=== PATIENT | male | born 1940 | race Caucasian/White ===

== ENCOUNTER 2019-04-13 13:02 | Inpatient (IN) ==
[2019-04-13] MEDS ORDERED: Albuterol 2.5 MG/3 ML NEBULIZER IH PRN ×2 (15:35→15:45)
[2019-04-13] MEDS ORDERED: Artificial Tears SOLN 15 ML BOTTLE BOTH EYES PRN (15:35)
[2019-04-13] MEDS: Lisinopril 20 MG TABLET PO SCH (20:32)
[2019-04-14] MEDS: Tiotropium 18 MCG inhalation IH SCH (07:32)
[2019-04-14 07:45] LABS: Activated Partial Thrombo Time 28.2 Seconds (26.0-36.0)
[2019-04-14 07:50] LABS: Calcium 9.7 mg/dL (8.6-10.3); Potassium 4.8 mEq/L (3.5-5.1)
[2019-04-14 07:52] LABS: Basophils % 0.5 %; Eosinophils # 0.1 K/mcL (0.0-0.6); Eosinophils % 2.7 %; Hematocrit 24.6 % (37.5-50.1); Hemoglobin 8.3 g/dL (12.9-16.9); Immature Granulocytes % 0.8 % (0-4); Lymphocytes # 1.5 K/mcL (0.6-4.6); Mean Corpuscular HGB Conc 33.7 g/dL (31.6-35.5); Mean Corpuscular Hemoglobin 35.6 pg (28.0-33.3); Mean Corpuscular Volume 105.6 fL (83.0-100.0); Monocytes # 0.4 K/mcL (0.0-1.3); Monocytes % 10.7 %; Neutrophils # 1.7 K/mcL (1.6-8.9); Platelet Count 66 K/mcL (140-400); Red Blood Count 2.33 M/mcL (4.19-5.50); Red Cell Distribution Width 15.9 % (11.5-14.5); Segmented Neutrophils % 45.3 %; White Blood Count 3.8 K/mcL (4.3-11.1)
[2019-04-14] MEDS: NIFEdipine XL (24 HR) 30 MG TAB.ER.24 PO SCH (08:06)
[2019-04-14] MEDS: Aspirin Enteric Coated 81 MG Tablet PO SCH (08:06)
[2019-04-14] MEDS: Cholecalciferol (D-3) 1,000 UNIT (25MCG) TABLET PO SCH (08:06)
[2019-04-14] MEDS: Furosemide 40 MG TABLET PO SCH (08:07)
[2019-04-14] MEDS: Isosorbide MONOnitrate (24 HR) 30 MG TAB.ER.24H PO SCH (08:07)
[2019-04-14] MEDS: Vitamin B Complex/Vit C/Vit E 1 EACH TABLET PO SCH (08:07)
[2019-04-14] MEDS: Lisinopril 20 MG TABLET PO SCH ×2 (08:08→20:48)
[2019-04-14] MEDS: Loratadine 10 MG TABLET PO SCH (08:08)
[2019-04-14] MEDS ORDERED: MOM Conc 10 ML UD.LIQ PO PRN (19:20)
[2019-04-15] MEDS: Tiotropium 18 MCG inhalation IH SCH (07:33)
[2019-04-15] MEDS: Furosemide 40 MG TABLET PO SCH (07:42)
[2019-04-15] MEDS: Isosorbide MONOnitrate (24 HR) 30 MG TAB.ER.24H PO SCH (07:42)
[2019-04-15] MEDS: NIFEdipine XL (24 HR) 30 MG TAB.ER.24 PO SCH (07:43)
[2019-04-15] MEDS: Lisinopril 20 MG TABLET PO SCH ×2 (07:43→20:03)
[2019-04-15] MEDS: Cholecalciferol (D-3) 1,000 UNIT (25MCG) TABLET PO SCH (08:20)
[2019-04-15] MEDS: Aspirin Enteric Coated 81 MG Tablet PO SCH (08:20)
[2019-04-15] MEDS: Loratadine 10 MG TABLET PO SCH (08:20)
[2019-04-15] MEDS: Vitamin B Complex/Vit C/Vit E 1 EACH TABLET PO SCH (08:20)
[2019-04-16] MEDS: NIFEdipine XL (24 HR) 30 MG TAB.ER.24 PO SCH (08:35)
[2019-04-16] MEDS: Furosemide 40 MG TABLET PO SCH (08:36)
[2019-04-16] MEDS: Cholecalciferol (D-3) 1,000 UNIT (25MCG) TABLET PO SCH (08:36)
[2019-04-16] MEDS: Isosorbide MONOnitrate (24 HR) 30 MG TAB.ER.24H PO SCH (08:36)
[2019-04-16] MEDS: Lisinopril 20 MG TABLET PO SCH ×2 (08:36→20:53)
[2019-04-16] MEDS: Vitamin B Complex/Vit C/Vit E 1 EACH TABLET PO SCH (08:36)
[2019-04-16] MEDS: Loratadine 10 MG TABLET PO SCH (08:36)
[2019-04-16] MEDS: Aspirin Enteric Coated 81 MG Tablet PO SCH (08:36)
[2019-04-16] MEDS: Tiotropium 18 MCG inhalation IH SCH (09:06)
[2019-04-17] MEDS: Tiotropium 18 MCG inhalation IH SCH (08:36)
[2019-04-17] MEDS: Lisinopril 20 MG TABLET PO SCH ×2 (10:47→20:01)
[2019-04-17] MEDS: NIFEdipine XL (24 HR) 30 MG TAB.ER.24 PO SCH (10:47)
[2019-04-17] MEDS: Cholecalciferol (D-3) 1,000 UNIT (25MCG) TABLET PO SCH (10:47)
[2019-04-17] MEDS: Isosorbide MONOnitrate (24 HR) 30 MG TAB.ER.24H PO SCH (10:47)
[2019-04-17] MEDS: Vitamin B Complex/Vit C/Vit E 1 EACH TABLET PO SCH (10:48)
[2019-04-17] MEDS: Loratadine 10 MG TABLET PO SCH (10:48)
[2019-04-17] MEDS: Furosemide 40 MG TABLET PO SCH (10:48)
[2019-04-17] MEDS: Aspirin Enteric Coated 81 MG Tablet PO SCH (12:30)
[2019-04-18] MEDS: Loratadine 10 MG TABLET PO SCH (07:53)
[2019-04-18] MEDS: Cholecalciferol (D-3) 1,000 UNIT (25MCG) TABLET PO SCH (07:54)
[2019-04-18] MEDS: Vitamin B Complex/Vit C/Vit E 1 EACH TABLET PO SCH (07:55)
[2019-04-18] MEDS: Aspirin Enteric Coated 81 MG Tablet PO SCH (07:56)
[2019-04-18] MEDS: Furosemide 40 MG TABLET PO SCH (07:58)
[2019-04-18] MEDS: Isosorbide MONOnitrate (24 HR) 30 MG TAB.ER.24H PO SCH (07:58)
[2019-04-18] MEDS: Lisinopril 20 MG TABLET PO SCH ×2 (07:59→20:53)
[2019-04-18] MEDS: NIFEdipine XL (24 HR) 30 MG TAB.ER.24 PO SCH (07:59)
[2019-04-18] MEDS: Tiotropium 18 MCG inhalation IH SCH (09:05)
[2019-04-19] MEDS: Lisinopril 20 MG TABLET PO SCH ×2 (07:47→20:17)
[2019-04-19] MEDS: NIFEdipine XL (24 HR) 30 MG TAB.ER.24 PO SCH (07:47)
[2019-04-19] MEDS: Vitamin B Complex/Vit C/Vit E 1 EACH TABLET PO SCH (07:47)
[2019-04-19] MEDS: Isosorbide MONOnitrate (24 HR) 30 MG TAB.ER.24H PO SCH (07:47)
[2019-04-19] MEDS: Cholecalciferol (D-3) 1,000 UNIT (25MCG) TABLET PO SCH (07:47)
[2019-04-19] MEDS: Loratadine 10 MG TABLET PO SCH (07:48)
[2019-04-19] MEDS: Furosemide 40 MG TABLET PO SCH (07:48)
[2019-04-19] MEDS: Tiotropium 18 MCG inhalation IH SCH (07:59)
[2019-04-19] MEDS: Aspirin Enteric Coated 81 MG Tablet PO SCH (10:51)
[2019-04-19] MEDS: Melatonin 3 MG TABLET PO SCH (20:17)
[2019-04-20 04:59] LABS: Basophils % 0.5 %; Eosinophils # 0.1 K/mcL (0.0-0.6); Eosinophils % 2.8 %; Hematocrit 20.2 % (37.5-50.1); Hemoglobin 6.9 g/dL (12.9-16.9); Immature Granulocytes % 0.8 % (0-4); Lymphocytes # 1.4 K/mcL (0.6-4.6); Lymphocytes % 36.3 %; Mean Corpuscular HGB Conc 34.2 g/dL (31.6-35.5); Mean Corpuscular Hemoglobin 36.1 pg (28.0-33.3); Mean Corpuscular Volume 105.8 fL (83.0-100.0); Mean Platelet Volume 13.3 fL (9.4-12.4); Monocytes # 0.3 K/mcL (0.0-1.3); Monocytes % 8.4 %; Red Blood Count 1.91 M/mcL (4.19-5.50); Red Cell Distribution Width 15.2 % (11.5-14.5); Segmented Neutrophils % 51.2 %; White Blood Count 3.9 K/mcL (4.3-11.1)
[2019-04-20 05:03] LABS: Platelet Count 54 K/mcL (140-400)
[2019-04-20] MEDS: Tiotropium 18 MCG inhalation IH SCH (08:07)
[2019-04-20] MEDS: Loratadine 10 MG TABLET PO SCH (08:20)
[2019-04-20] MEDS: Vitamin B Complex/Vit C/Vit E 1 EACH TABLET PO SCH (08:20)
[2019-04-20] MEDS: Cholecalciferol (D-3) 1,000 UNIT (25MCG) TABLET PO SCH (08:21)
[2019-04-20] MEDS: Isosorbide MONOnitrate (24 HR) 30 MG TAB.ER.24H PO SCH (09:48)
[2019-04-20] MEDS: Furosemide 40 MG TABLET PO SCH (09:48)
[2019-04-20] MEDS: NIFEdipine XL (24 HR) 30 MG TAB.ER.24 PO SCH (09:49)
[2019-04-20] MEDS: Lisinopril 20 MG TABLET PO SCH ×2 (09:49→21:11)
[2019-04-20] MEDS ORDERED: 0.9 % Sodium Chloride 250 ML ONE ×2 (17:51→22:35)
[2019-04-20] MEDS: Melatonin 3 MG TABLET PO SCH (21:11)
[2019-04-21] MEDS: NIFEdipine XL (24 HR) 30 MG TAB.ER.24 PO SCH (07:48)
[2019-04-21] MEDS: Isosorbide MONOnitrate (24 HR) 30 MG TAB.ER.24H PO SCH (07:48)
[2019-04-21] MEDS: Cholecalciferol (D-3) 1,000 UNIT (25MCG) TABLET PO SCH (07:48)
[2019-04-21] MEDS: Furosemide 40 MG TABLET PO SCH (07:49)
[2019-04-21] MEDS: Vitamin B Complex/Vit C/Vit E 1 EACH TABLET PO SCH (07:49)
[2019-04-21] MEDS: Loratadine 10 MG TABLET PO SCH (07:49)
[2019-04-21] MEDS: Lisinopril 20 MG TABLET PO SCH ×2 (07:49→21:11)
[2019-04-21] MEDS: Tiotropium 18 MCG inhalation IH SCH (09:16)
[2019-04-21 11:53] LABS: Basophils % 0.5 %; Eosinophils # 0.2 K/mcL (0.0-0.6); Eosinophils % 3.6 %; Hematocrit 26.1 % (37.5-50.1); Hemoglobin 9.1 g/dL (12.9-16.9); Immature Granulocytes % 0.5 % (0-4); Lymphocytes # 1.3 K/mcL (0.6-4.6); Lymphocytes % 30.1 %; Mean Corpuscular HGB Conc 34.9 g/dL (31.6-35.5); Mean Corpuscular Hemoglobin 35.3 pg (28.0-33.3); Mean Corpuscular Volume 101.2 fL (83.0-100.0); Monocytes # 0.4 K/mcL (0.0-1.3); Monocytes % 9.9 %; Neutrophils # 2.3 K/mcL (1.6-8.9); Red Blood Count 2.58 M/mcL (4.19-5.50); Red Cell Distribution Width 16.4 % (11.5-14.5); Segmented Neutrophils % 55.4 %; White Blood Count 4.2 K/mcL (4.3-11.1)
[2019-04-21 11:54] LABS: Platelet Count 62 K/mcL (140-400)
[2019-04-21] MEDS: Melatonin 3 MG TABLET PO SCH (21:11)
[2019-04-22] MEDS: Isosorbide MONOnitrate (24 HR) 30 MG TAB.ER.24H PO SCH (08:07)
[2019-04-22] MEDS: Cholecalciferol (D-3) 1,000 UNIT (25MCG) TABLET PO SCH (08:07)
[2019-04-22] MEDS: NIFEdipine XL (24 HR) 30 MG TAB.ER.24 PO SCH (08:07)
[2019-04-22] MEDS: Vitamin B Complex/Vit C/Vit E 1 EACH TABLET PO SCH (08:07)
[2019-04-22] MEDS: Furosemide 40 MG TABLET PO SCH (08:07)
[2019-04-22] MEDS: Loratadine 10 MG TABLET PO SCH (08:07)
[2019-04-22] MEDS: Lisinopril 20 MG TABLET PO SCH ×2 (08:08→20:44)
[2019-04-22] MEDS: Tiotropium 18 MCG inhalation IH SCH (09:35)
[2019-04-22] MEDS: Melatonin 3 MG TABLET PO SCH (20:44)
[2019-04-23] MEDS ORDERED: Mag Hydrox/Al Hydrox/Simeth 30 ML UDC PO PRN (04:21)
[2019-04-23] MEDS: Tiotropium 18 MCG inhalation IH SCH (08:22)
[2019-04-23] MEDS: Lisinopril 20 MG TABLET PO SCH ×2 (08:41→21:10)
[2019-04-23] MEDS: Furosemide 40 MG TABLET PO SCH (08:41)
[2019-04-23] MEDS: Loratadine 10 MG TABLET PO SCH (08:41)
[2019-04-23] MEDS: NIFEdipine XL (24 HR) 30 MG TAB.ER.24 PO SCH (08:41)
[2019-04-23] MEDS: Cholecalciferol (D-3) 1,000 UNIT (25MCG) TABLET PO SCH (08:41)
[2019-04-23] MEDS: Isosorbide MONOnitrate (24 HR) 30 MG TAB.ER.24H PO SCH (08:42)
[2019-04-23] MEDS: Vitamin B Complex/Vit C/Vit E 1 EACH TABLET PO SCH (08:42)
[2019-04-23] MEDS: Melatonin 3 MG TABLET PO SCH (21:10)
[2019-04-24] MEDS: Tiotropium 18 MCG inhalation IH SCH (08:08)
[2019-04-24] MEDS: Cholecalciferol (D-3) 1,000 UNIT (25MCG) TABLET PO SCH (08:38)
[2019-04-24] MEDS: Lisinopril 20 MG TABLET PO SCH ×2 (08:38→19:46)
[2019-04-24] MEDS: Isosorbide MONOnitrate (24 HR) 30 MG TAB.ER.24H PO SCH (08:38)
[2019-04-24] MEDS: Vitamin B Complex/Vit C/Vit E 1 EACH TABLET PO SCH (08:38)
[2019-04-24] MEDS: Furosemide 40 MG TABLET PO SCH (08:39)
[2019-04-24] MEDS: Loratadine 10 MG TABLET PO SCH (08:39)
[2019-04-24] MEDS: NIFEdipine XL (24 HR) 30 MG TAB.ER.24 PO SCH (08:40)
[2019-04-24] MEDS: Melatonin 3 MG TABLET PO SCH (19:46)
[2019-04-25 07:19] LABS: Basophils % 0.3 %; Eosinophils # 0.2 K/mcL (0.0-0.6); Eosinophils % 3.8 %; Hematocrit 23.1 % (37.5-50.1); Immature Granulocytes % 0.5 % (0-4); Lymphocytes # 1.2 K/mcL (0.6-4.6); Lymphocytes % 29.5 %; Mean Corpuscular HGB Conc 34.6 g/dL (31.6-35.5); Mean Corpuscular Hemoglobin 34.9 pg (28.0-33.3); Mean Corpuscular Volume 100.9 fL (83.0-100.0); Mean Platelet Volume 13.1 fL (9.4-12.4); Monocytes # 0.4 K/mcL (0.0-1.3); Monocytes % 10.2 %; Neutrophils # 2.2 K/mcL (1.6-8.9); Red Blood Count 2.29 M/mcL (4.19-5.50); Red Cell Distribution Width 15.5 % (11.5-14.5); Segmented Neutrophils % 55.7 %; White Blood Count 3.9 K/mcL (4.3-11.1)
[2019-04-25 07:21] LABS: Platelet Count 73 K/mcL (140-400)
[2019-04-25] MEDS: Tiotropium 18 MCG inhalation IH SCH (08:11)
[2019-04-25] MEDS: Vitamin B Complex/Vit C/Vit E 1 EACH TABLET PO SCH (08:45)
[2019-04-25] MEDS: Cholecalciferol (D-3) 1,000 UNIT (25MCG) TABLET PO SCH (08:45)
[2019-04-25] MEDS: Furosemide 40 MG TABLET PO SCH (08:45)
[2019-04-25] MEDS: Lisinopril 20 MG TABLET PO SCH ×2 (08:46→20:11)
[2019-04-25] MEDS: Loratadine 10 MG TABLET PO SCH (08:46)
[2019-04-25] MEDS: NIFEdipine XL (24 HR) 30 MG TAB.ER.24 PO SCH (08:46)
[2019-04-25] MEDS: Isosorbide MONOnitrate (24 HR) 30 MG TAB.ER.24H PO SCH (08:46)
[2019-04-25] MEDS ORDERED: Aspirin Enteric Coated 81 MG Tablet PO SCH (09:00)
[2019-04-25] MEDS: Ondansetron ODT 4 MG TAB.RAPDIS SL PRN ×2 (19:00→23:08)
[2019-04-25] MEDS ORDERED: Nitroglycerin 0.4 MG TAB.SUBL SL PRN (20:00)
[2019-04-25] MEDS ORDERED: GI Cocktail 40 ML EACH PO ONE (20:00)
[2019-04-25] MEDS: Melatonin 3 MG TABLET PO SCH (20:49)
[2019-04-26] MEDS: Morphine Sulfate Oral CONC 10 MG/0.5 ML ORAL.SYG SL PRN ×2 (00:05→04:01)
[2019-04-26] MEDS ORDERED: Morphine Sulfate Oral CONC 10 MG/0.5 ML ORAL.SYG SL ONE (05:56)
[2019-04-26 07:09] LABS: Bilirubin,Urine Negative (Negative); Blood,Urine Negative (Negative); Clarity,Urine Clear (Clear); Color,Urine Yellow (Yellow); Glucose,Urine (UA) 100 mg/dL (Normal); Ketones,Urine Negative (Negative); Leukocyte Esterase,Urine Negative (Negative); Nitrite,Urine Negative (Negative); PH,Urine 8.5 pH Units (5.0-8.0); Protein,Urine >=300 mg/dL (Neg-Trace); Urobilinogen,Urine Normal (Normal)
[2019-04-26 07:35] LABS: Bacteria,Urine Few per hpf (None-Few); Hyaline Casts,Urine Few per lpf (None-Few); Mucus,Urine Few (Few); RBC,Urine 0-3 per hpf (0-3); Squamous Epithelial Cell,Urine Few per lpf (None-Few); WBC,Urine 0-3 per hpf (0-3)
[2019-04-26 07:58] VITALS: BP 182/81
[2019-04-26] MEDS: Isosorbide MONOnitrate (24 HR) 30 MG TAB.ER.24H PO SCH (08:06)
[2019-04-26] MEDS: Vitamin B Complex/Vit C/Vit E 1 EACH TABLET PO SCH (08:06)
[2019-04-26] MEDS: NIFEdipine XL (24 HR) 30 MG TAB.ER.24 PO SCH (08:07)
[2019-04-26] MEDS: Cholecalciferol (D-3) 1,000 UNIT (25MCG) TABLET PO SCH (08:07)
[2019-04-26] MEDS: Loratadine 10 MG TABLET PO SCH (08:07)
[2019-04-26] MEDS: Lisinopril 20 MG TABLET PO SCH (08:07)
[2019-04-26] MEDS: Furosemide 40 MG TABLET PO SCH (08:07)
[2019-04-26 09:05] LABS: Basophils % 0.3 %; Eosinophils # 0.1 K/mcL (0.0-0.6); Eosinophils % 2.2 %; Hematocrit 22.5 % (37.5-50.1); Hemoglobin 7.7 g/dL (12.9-16.9); Immature Granulocytes % 0.3 % (0-4); Mean Corpuscular HGB Conc 34.2 g/dL (31.6-35.5); Mean Corpuscular Hemoglobin 34.8 pg (28.0-33.3); Mean Corpuscular Volume 101.8 fL (83.0-100.0); Mean Platelet Volume 13.2 fL (9.4-12.4); Monocytes # 0.4 K/mcL (0.0-1.3); Monocytes % 10.7 %; Neutrophils # 2.1 K/mcL (1.6-8.9); Red Blood Count 2.21 M/mcL (4.19-5.50); Red Cell Distribution Width 15.6 % (11.5-14.5); Segmented Neutrophils % 58.5 %; White Blood Count 3.6 K/mcL (4.3-11.1)
[2019-04-26 09:08] LABS: Platelet Count 70 K/mcL (140-400)
[2019-04-26] MEDS: Tiotropium 18 MCG inhalation IH SCH (09:13)
[2019-04-26 09:22] LABS: Albumin 3.2 g/dL (3.5-5.7); Albumin/Globulin Ratio 1.3 (1.1-2.2); Bilirubin,Total 0.5 mg/dL (0.3-1.0); Calcium 9.5 mg/dL (8.6-10.3); Globulin 2.5 g/dL (2.4-3.5); Potassium 4.2 mEq/L (3.5-5.1); Total Protein 5.7 g/dL (6.4-8.9)
== END 2019-04-26 11:43 | disposition home or self-care (01) | DRG 945 ==
LOC: INPPIK 14:54
PROVIDERS: ADMIT Internal Medicine; ATTEND Internal Medicine

== ENCOUNTER 2019-04-27 15:39 | Observation (INO) ==
[2019-04-27 16:25] LABS: Basophils % 0.2 %; Eosinophils # 0.1 K/mcL (0.0-0.6); Eosinophils % 1.5 %; Immature Granulocytes % 1.1 % (0-4); Lymphocytes # 0.7 K/mcL (0.6-4.6); Lymphocytes % 16.3 %; Mean Corpuscular HGB Conc 33.3 g/dL (31.6-35.5); Mean Corpuscular Hemoglobin 34.9 pg (28.0-33.3); Mean Corpuscular Volume 104.8 fL (83.0-100.0); Mean Platelet Volume 13.5 fL (9.4-12.4); Monocytes # 0.5 K/mcL (0.0-1.3); Monocytes % 11.7 %; Neutrophils # 3.1 K/mcL (1.6-8.9); Platelet Count 69 K/mcL (140-400); Red Blood Count 2.29 M/mcL (4.19-5.50); Red Cell Distribution Width 15.7 % (11.5-14.5); Segmented Neutrophils % 69.2 %; White Blood Count 4.5 K/mcL (4.3-11.1)
[2019-04-27 16:26] LABS: Prothrombin Time 11.4 Seconds (9.4-12.1)
[2019-04-27 16:29] LABS: Activated Partial Thrombo Time 28.5 Seconds (26.0-36.0)
[2019-04-27 16:33] LABS: Calcium 9.2 mg/dL (8.6-10.3); Potassium 3.5 mEq/L (3.5-5.1)
[2019-04-27 16:39] LABS: Troponin I 0.04 ng/mL (< 0.04)
[2019-04-27] MEDS ORDERED: Albuterol 2.5 MG/3 ML NEBULIZER IH PRN (19:48)
[2019-04-27] MEDS ORDERED: *HR* HYDROcodone/Acet 5/325 mg TABLET PO PRN (19:48)
[2019-04-27] MEDS ORDERED: Artificial Tears SOLN 15 ML BOTTLE BOTH EYES PRN (19:48)
[2019-04-27] MEDS ORDERED: Naloxone 0.4 MG/ML INJ IVP PRN (19:48)
[2019-04-27] MEDS ORDERED: Mag Hydrox/Al Hydrox/Simeth 30 ML UDC PO PRN (19:48)
[2019-04-27] MEDS ORDERED: Acetaminophen 325 MG TABLET PO PRN (19:48)
[2019-04-27] MEDS ORDERED: MOM Conc 10 ML UD.LIQ PO PRN (19:48)
[2019-04-27] MEDS: Lisinopril 20 MG TABLET PO SCH (21:21)
[2019-04-28] MEDS ORDERED: Tiotropium 18 MCG inhalation IH SCH (07:00)
[2019-04-28 08:40] LABS: Eosinophils % 2.4 %; Hematocrit 23.4 % (37.5-50.1); Hemoglobin 7.9 g/dL (12.9-16.9); Immature Granulocytes % 0.6 % (0-4); Lymphocytes % 25.5 %; Mean Corpuscular HGB Conc 33.8 g/dL (31.6-35.5); Mean Corpuscular Hemoglobin 35.1 pg (28.0-33.3); Mean Platelet Volume 12.1 fL (9.4-12.4); Monocytes % 10.5 %; Red Blood Count 2.25 M/mcL (4.19-5.50); Red Cell Distribution Width 15.9 % (11.5-14.5); Segmented Neutrophils % 60.8 %; White Blood Count 4.7 K/mcL (4.3-11.1)
[2019-04-28 08:41] LABS: Basophils % 0.2 %; Eosinophils # 0.1 K/mcL (0.0-0.6); Lymphocytes # 1.2 K/mcL (0.6-4.6); Monocytes # 0.5 K/mcL (0.0-1.3); Neutrophils # 2.8 K/mcL (1.6-8.9)
[2019-04-28 08:44] LABS: Platelet Count 63 K/mcL (140-400)
[2019-04-28 08:53] LABS: Calcium 9.2 mg/dL (8.6-10.3)
[2019-04-28] MEDS ORDERED: Furosemide 40 MG TABLET PO SCH (09:00)
[2019-04-28] MEDS ORDERED: Isosorbide MONOnitrate (24 HR) 60 MG TAB.ER.24H PO SCH (09:00)
[2019-04-28] MEDS ORDERED: NIFEdipine XL (24 HR) 30 MG TAB.ER.24 PO SCH (09:00)
[2019-04-28] MEDS ORDERED: Loratadine 10 MG TABLET PO SCH (09:00)
[2019-04-28] MEDS ORDERED: Aspirin Enteric Coated 81 MG Tablet PO SCH (09:00)
[2019-04-28] MEDS: Lisinopril 20 MG TABLET PO SCH (10:13)
[2019-04-28 10:25] VITALS: BP 132/60
== END 2019-04-28 13:38 | disposition other institution (70) ==
LOC: INPPIK 15:39 → EMEROOPIK 15:39 → INPPIK 19:44
PROVIDERS: ADMIT Internal Medicine; ATTEND Internal Medicine

== ENCOUNTER 2019-04-28 12:22 | Inpatient (IN) ==
[2019-04-28] MEDS ORDERED: Artificial Tears SOLN 15 ML BOTTLE BOTH EYES PRN (13:13)
[2019-04-28] MEDS ORDERED: Albuterol 2.5 MG/3 ML NEBULIZER IH PRN (13:13)
[2019-04-28] MEDS: Lisinopril 20 MG TABLET PO SCH (19:42)
[2019-04-29] MEDS: Tiotropium 18 MCG inhalation IH SCH (08:16)
[2019-04-29] MEDS: Cholecalciferol (D-3) 1,000 UNIT (25MCG) TABLET PO SCH (09:04)
[2019-04-29] MEDS: Furosemide 40 MG TABLET PO SCH (09:05)
[2019-04-29] MEDS: Aspirin Enteric Coated 81 MG Tablet PO SCH (09:05)
[2019-04-29] MEDS: Isosorbide MONOnitrate (24 HR) 60 MG TAB.ER.24H PO SCH (09:05)
[2019-04-29] MEDS: Loratadine 10 MG TABLET PO SCH (09:05)
[2019-04-29] MEDS: NIFEdipine XL (24 HR) 30 MG TAB.ER.24 PO SCH (09:05)
[2019-04-29] MEDS: Lisinopril 20 MG TABLET PO SCH ×2 (09:05→19:38)
[2019-04-29] MEDS: Vitamin B Complex/Vit C/Vit E 1 EACH TABLET PO SCH (09:06)
[2019-04-30] MEDS: Tiotropium 18 MCG inhalation IH SCH (06:43)
[2019-04-30] MEDS: Furosemide 40 MG TABLET PO SCH (09:21)
[2019-04-30] MEDS: Cholecalciferol (D-3) 1,000 UNIT (25MCG) TABLET PO SCH (09:21)
[2019-04-30] MEDS: Lisinopril 20 MG TABLET PO SCH ×2 (09:21→20:17)
[2019-04-30] MEDS: Aspirin Enteric Coated 81 MG Tablet PO SCH (09:21)
[2019-04-30] MEDS: Isosorbide MONOnitrate (24 HR) 60 MG TAB.ER.24H PO SCH (09:21)
[2019-04-30] MEDS: Loratadine 10 MG TABLET PO SCH (09:22)
[2019-04-30] MEDS: NIFEdipine XL (24 HR) 30 MG TAB.ER.24 PO SCH (09:22)
[2019-04-30] MEDS: Vitamin B Complex/Vit C/Vit E 1 EACH TABLET PO SCH (09:22)
[2019-05-01] MEDS: Furosemide 40 MG TABLET PO SCH (08:37)
[2019-05-01] MEDS: NIFEdipine XL (24 HR) 30 MG TAB.ER.24 PO SCH (08:37)
[2019-05-01] MEDS: Cholecalciferol (D-3) 1,000 UNIT (25MCG) TABLET PO SCH (08:37)
[2019-05-01] MEDS: Loratadine 10 MG TABLET PO SCH (08:37)
[2019-05-01] MEDS: Lisinopril 20 MG TABLET PO SCH ×2 (08:37→20:45)
[2019-05-01] MEDS: Isosorbide MONOnitrate (24 HR) 60 MG TAB.ER.24H PO SCH (08:37)
[2019-05-01] MEDS: Aspirin Enteric Coated 81 MG Tablet PO SCH (08:37)
[2019-05-01] MEDS: Vitamin B Complex/Vit C/Vit E 1 EACH TABLET PO SCH (08:37)
[2019-05-01] MEDS: Tiotropium 18 MCG inhalation IH SCH (09:40)
[2019-05-01] MEDS ORDERED: DiphenhydraMINE CREAM 28.4 GM TUBE TP PRN (13:19)
[2019-05-02] MEDS: Aspirin Enteric Coated 81 MG Tablet PO SCH (08:19)
[2019-05-02] MEDS: Cholecalciferol (D-3) 1,000 UNIT (25MCG) TABLET PO SCH (08:19)
[2019-05-02] MEDS: Loratadine 10 MG TABLET PO SCH (08:19)
[2019-05-02] MEDS: Vitamin B Complex/Vit C/Vit E 1 EACH TABLET PO SCH (08:19)
[2019-05-02] MEDS: NIFEdipine XL (24 HR) 30 MG TAB.ER.24 PO SCH (08:26)
[2019-05-02] MEDS: Furosemide 40 MG TABLET PO SCH (08:26)
[2019-05-02] MEDS: Isosorbide MONOnitrate (24 HR) 60 MG TAB.ER.24H PO SCH (08:26)
[2019-05-02] MEDS: Lisinopril 20 MG TABLET PO SCH ×2 (08:27→20:39)
[2019-05-02] MEDS: Tiotropium 18 MCG inhalation IH SCH (09:24)
[2019-05-03 06:27] VITALS: BP 170/78
[2019-05-03] MEDS: Isosorbide MONOnitrate (24 HR) 60 MG TAB.ER.24H PO SCH (07:58)
[2019-05-03] MEDS: NIFEdipine XL (24 HR) 30 MG TAB.ER.24 PO SCH (07:58)
[2019-05-03] MEDS: Cholecalciferol (D-3) 1,000 UNIT (25MCG) TABLET PO SCH (07:58)
[2019-05-03] MEDS: Lisinopril 20 MG TABLET PO SCH (07:58)
[2019-05-03] MEDS: Vitamin B Complex/Vit C/Vit E 1 EACH TABLET PO SCH (07:59)
[2019-05-03] MEDS: Furosemide 40 MG TABLET PO SCH (07:59)
[2019-05-03] MEDS: Aspirin Enteric Coated 81 MG Tablet PO SCH (07:59)
[2019-05-03] MEDS: Loratadine 10 MG TABLET PO SCH (07:59)
[2019-05-03] MEDS: Tiotropium 18 MCG inhalation IH SCH (09:37)
== END 2019-05-03 14:30 | disposition home health service (06) | DRG 945 ==
LOC: INPPIK 13:40
PROVIDERS: ADMIT Internal Medicine; ATTEND Internal Medicine

== ENCOUNTER 2019-05-25 15:57 | Observation (INO) ==
[2019-05-25 17:03] LABS: Basophils % 0.6 %; Eosinophils # 0.1 K/mcL (0.0-0.6); Eosinophils % 2.4 %; Hematocrit 18.5 % (37.5-50.1); Hemoglobin 6.1 g/dL (12.9-16.9); Immature Granulocytes % 0.3 % (0-4); Lymphocytes # 0.8 K/mcL (0.6-4.6); Lymphocytes % 25.2 %; Mean Corpuscular Hemoglobin 36.3 pg (28.0-33.3); Mean Corpuscular Volume 110.1 fL (83.0-100.0); Mean Platelet Volume 13.2 fL (9.4-12.4); Monocytes # 0.5 K/mcL (0.0-1.3); Monocytes % 14.9 %; Neutrophils # 1.9 K/mcL (1.6-8.9); Red Blood Count 1.68 M/mcL (4.19-5.50); Segmented Neutrophils % 56.6 %; White Blood Count 3.3 K/mcL (4.3-11.1)
[2019-05-25 17:09] LABS: Platelet Count 76 K/mcL (140-400)
[2019-05-25 17:22] LABS: Potassium 3.7 mEq/L (3.5-5.1)
[2019-05-25 17:43] LABS: Anisocytosis 1+ (Not Present); Macrocytosis Present (Not Present); Ovalocytes 1+ (Not Present); Platelet Estimate Decreased (Normal)
[2019-05-25] MEDS ORDERED: Naloxone 0.4 MG/ML INJ IVP PRN ×2 (17:44→18:25)
[2019-05-25] MEDS ORDERED: Albuterol 2.5 MG/3 ML NEBULIZER IH PRN (18:25)
[2019-05-25] MEDS ORDERED: Artificial Tears SOLN 15 ML BOTTLE BOTH EYES PRN (18:25)
[2019-05-25] MEDS: Lisinopril 20 MG TABLET PO SCH (20:20)
[2019-05-25] MEDS: carvediloL 6.25 MG TABLET PO SCH (20:20)
[2019-05-25] MEDS ORDERED: 0.9 % Sodium Chloride 250 ML ONE (22:31)
[2019-05-26] MEDS ORDERED: 0.9 % Sodium Chloride 250 ML ONE (01:14)
[2019-05-26 04:36] VITALS: BP 183/71
[2019-05-26 07:46] LABS: Basophils % 0.7 %; Eosinophils # 0.1 K/mcL (0.0-0.6); Hematocrit 23.8 % (37.5-50.1); Hemoglobin 8.2 g/dL (12.9-16.9); Immature Granulocytes % 0.3 % (0-4); Lymphocytes % 30.8 %; Mean Corpuscular HGB Conc 34.5 g/dL (31.6-35.5); Mean Corpuscular Hemoglobin 34.2 pg (28.0-33.3); Mean Corpuscular Volume 99.2 fL (83.0-100.0); Mean Platelet Volume 13.2 fL (9.4-12.4); Monocytes # 0.4 K/mcL (0.0-1.3); Monocytes % 14.1 %; Neutrophils # 1.6 K/mcL (1.6-8.9); Platelet Count 79 K/mcL (140-400); Red Cell Distribution Width 21.2 % (11.5-14.5); Segmented Neutrophils % 51.1 %; White Blood Count 3.1 K/mcL (4.3-11.1)
[2019-05-26] MEDS: carvediloL 6.25 MG TABLET PO SCH (07:48)
[2019-05-26] MEDS: Lisinopril 20 MG TABLET PO SCH (07:48)
[2019-05-26] MEDS ORDERED: Loratadine 10 MG TABLET PO SCH (09:00)
[2019-05-26] MEDS ORDERED: Vitamin B Complex/Vit C/Vit E 1 EACH TABLET PO SCH (09:00)
[2019-05-26] MEDS ORDERED: Cholecalciferol (D-3) 1,000 UNIT (25MCG) TABLET PO SCH (09:00)
[2019-05-26] MEDS ORDERED: Isosorbide MONOnitrate (24 HR) 60 MG TAB.ER.24H PO SCH (09:00)
[2019-05-26] MEDS ORDERED: Furosemide 40 MG TABLET PO SCH (09:00)
[2019-05-26] MEDS ORDERED: NIFEdipine XL (24 HR) 30 MG TAB.ER.24 PO SCH (09:00)
[2019-05-26] MEDS ORDERED: Aspirin Enteric Coated 81 MG Tablet PO SCH (09:00)
== END 2019-05-26 09:55 | disposition hospice, home (50) ==
LOC: INPPIK 15:57 → EMEROOPIK 15:57 → INPPIK 18:40
PROVIDERS: ADMIT Emergency Medicine; ATTEND Emergency Medicine

== ENCOUNTER 2019-07-03 09:57 | Observation (INO) ==
[2019-07-03] MEDS ORDERED: Ondansetron 4 MG/2 ML VIAL IVP ONE (10:08)
[2019-07-03] MEDS ORDERED: Famotidine 20 MG/2 ML VIAL IVP ONE (10:09)
[2019-07-03 10:27] LABS: Basophils % 0.2 %; Eosinophils % 0.4 %; Hematocrit 27.5 % (37.5-50.1); Hemoglobin 9.5 g/dL (12.9-16.9); Immature Granulocytes % 0.6 % (0-4); Lymphocytes # 0.7 K/mcL (0.6-4.6); Mean Corpuscular HGB Conc 34.5 g/dL (31.6-35.5); Mean Corpuscular Hemoglobin 34.9 pg (28.0-33.3); Mean Corpuscular Volume 101.1 fL (83.0-100.0); Mean Platelet Volume 12.9 fL (9.4-12.4); Monocytes # 0.6 K/mcL (0.0-1.3); Monocytes % 10.6 %; Neutrophils # 3.9 K/mcL (1.6-8.9); Platelet Count 108 K/mcL (140-400); Red Blood Count 2.72 M/mcL (4.19-5.50); Red Cell Distribution Width 20.9 % (11.5-14.5); Segmented Neutrophils % 74.2 %; White Blood Count 5.2 K/mcL (4.3-11.1)
[2019-07-03] MEDS: 0.9 % Sodium Chloride 1,000 ML IVC SCH ×3 (10:27→20:04)
[2019-07-03 10:45] LABS: Albumin 3.6 g/dL (3.5-5.7); Albumin/Globulin Ratio 1.3 (1.1-2.2); Bilirubin,Total 0.7 mg/dL (0.3-1.0); Calcium 10.2 mg/dL (8.6-10.3); Globulin 2.8 g/dL (2.4-3.5); Potassium 4.5 mEq/L (3.5-5.1); Total Protein 6.4 g/dL (6.4-8.9)
[2019-07-03] MEDS ORDERED: Naloxone 0.4 MG/ML INJ IVP PRN (13:02)
[2019-07-03] MEDS ORDERED: Lactulose Oral Soln 20 GM/30 ML UDC PO ONE (13:07)
[2019-07-03] MEDS ORDERED: Promethazine 12.5 MG in 0.9 % Sodium Chloride 100 ML IVPB PRN (13:40)
[2019-07-03] MEDS ORDERED: Morphine Sulfate 2 MG/ML SYRINGE IVP PRN (14:12)
[2019-07-03] MEDS ORDERED: Artificial Tears SOLN 15 ML BOTTLE BOTH EYES PRN (15:06)
[2019-07-03] MEDS ORDERED: FENTANYL TD SCH ×2 (15:15→16:00)
[2019-07-03] MEDS ORDERED: carvediloL 6.25 MG TABLET PO SCH (17:00)
[2019-07-03] MEDS: Ondansetron 4 MG/2 ML VIAL IVP PRN ×2 (18:52→23:06)
[2019-07-03] MEDS ORDERED: *HR* Labetalol 100 MG/20 ML MDV IVP ONE (19:02)
[2019-07-03] MEDS ORDERED: Bisacodyl 10 MG RECTAL SUPPOSITORY RC PRN (19:44)
[2019-07-03] MEDS ORDERED: Lactulose Oral Soln 20 GM/30 ML UDC PO SCH (21:00)
[2019-07-03] MEDS ORDERED: NIFEdipine XL (24 HR) 30 MG TAB.ER.24 PO SCH (21:00)
[2019-07-03] MEDS ORDERED: Loratadine 10 MG TABLET PO SCH (21:00)
[2019-07-03] MEDS ORDERED: Lisinopril 20 MG TABLET PO SCH (21:00)
[2019-07-03 22:37] LABS: Basophils % 0.3 %; Eosinophils # 0.1 K/mcL (0.0-0.6); Eosinophils % 0.7 %; Hematocrit 28.8 % (37.5-50.1); Hemoglobin 9.8 g/dL (12.9-16.9); Immature Granulocytes % 0.6 % (0-4); Lymphocytes # 0.8 K/mcL (0.6-4.6); Mean Corpuscular Hemoglobin 34.6 pg (28.0-33.3); Mean Corpuscular Volume 101.8 fL (83.0-100.0); Mean Platelet Volume 13.5 fL (9.4-12.4); Monocytes # 0.8 K/mcL (0.0-1.3); Monocytes % 11.2 %; Neutrophils # 5.2 K/mcL (1.6-8.9); Red Blood Count 2.83 M/mcL (4.19-5.50); Segmented Neutrophils % 75.2 %; White Blood Count 6.9 K/mcL (4.3-11.1)
[2019-07-03 22:38] LABS: Platelet Count 95 K/mcL (140-400)
[2019-07-03 22:53] VITALS: BP 184/87
[2019-07-04] MEDS ORDERED: Vitamin B Complex/Vit C/Vit E 1 EACH TABLET PO SCH (09:00)
[2019-07-04] MEDS ORDERED: Isosorbide MONOnitrate (24 HR) 60 MG TAB.ER.24H PO SCH (09:00)
[2019-07-04] MEDS ORDERED: Furosemide 40 MG TABLET PO SCH (09:00)
[2019-07-04] MEDS ORDERED: Bisacodyl 10 MG RECTAL SUPPOSITORY RC ONE (13:06)
== END 2019-07-03 23:05 | disposition short-term general hospital (02) ==
LOC: INPPIK 09:57 → EMEROOPIK 09:57 → INPPIK 12:55
PROVIDERS: ADMIT Family Medicine; ATTEND Family Medicine